=== PATIENT | female | born 1980 | race Caucasian/White ===

== ENCOUNTER → 2024-09-08 12:28 | Outpatient (REF) | payer OTHER, SELFPAY | LOC: WDC 12:28 | PROVIDERS: ATTENDING PHYSICIAN Physician Assistant | DX: Z12.31 Encounter for screening mammogram for malignant neoplasm of breast (principal) | CPT/HCPCS: 77063; 77067 ==

== ENCOUNTER 2024-09-16 15:59 | Day surgery (SDC) | payer OTHER, SELFPAY ==
[2024-09-16] VITALS (14 sets, daily range): BP systolic 112–151; BP diastolic 73–95; BMI 26.9
[2024-09-16 12:04] LABS: % Basophils 0.4 % (0-2); % Immature Granulocytes 0.4 % (0-0.5); % Lymphocytes 12.4 % (20.5-51.1); % Monocytes 10.5 % (1.7-9.3); % Neutrophils 76.3 % (42.2-75.2); Absolute Lymphocytes 1.3 10^3/uL (1.2-3.4); Absolute Monocytes 1.1 10^3/uL (0.1-0.6); Absolute Neutrophils 7.8 10^3/uL (1.4-6.5); Hematocrit 40.4 % (37.0-47.0); Hemoglobin 13.7 g/dL (12.0-16.0); Mean Corp Hgb Conc. 33.9 g/dL (33.0-37.0); Mean Corpuscular Hgb 29.1 pg (27.0-31.0); Mean Corpuscular Volume 85.8 fL (81.0-99.0); Mean Platelet Volume 9.8 fL (7.4-10.4); Nucleated Red Blood Cells % 0 %; Platelet Count 218 10^3/uL (130-400); Red Blood Cell Count 4.71 10^6/uL (4.20-5.40); Red Cell Dist. Width 12.5 % (11.5-14.5); White Blood Cell Count 10.2 10^3/uL (4.8-10.8)
[2024-09-16 12:15] LABS: HCG, Serum Qualitative Screen Negative
[2024-09-16 12:22] LABS: ALT (SGPT) 20 U/L (0-35); AST (SGOT) 20 U/L (14-36); Albumin 4.5 g/dl (3.5-5.0); Alkaline Phosphatase 60 U/L (38-126); Blood Urea Nitrogen 14 mg/dl (7-17); Calcium 9.3 mg/dl (8.4-10.2); Carbon Dioxide 28 mmol/L (22-30); Chloride 97 mmol/L (98-107); Glucose 104 mg/dl (70-99); Sodium 136 mmol/L (135-145); Total Bilirubin 0.7 mg/dl (0.2-1.3); Total Protein 7.5 g/dl (6.3-8.2); eGFR > 60.00
--- NOTE | 2024-09-16 13:28 | ED.GENMED ---
History of Present Illness
General
Chief Complaint: Abdominal Pain
Time Seen by Provider: 09/16/24 13:28
History of Present Illness
History of Present Illness:
TIME OF INITIAL ENCOUNTER: 1:30 PM
HPI: Patient presents with nausea, vomiting, and diarrhea that started 3 days ago. The NVD has improved but she has right-sided abdominal discomfort. This was associated with fever and she then developed right lower quadrant discomfort. She has
had some persistent loss of appetite. She has intermittent waves of nausea. She has an IUD. She has had some questionable chills.
EXAM:
GENERAL: Well appearing in no distress
HEENT: Moist oral mucosa
CARDIOVASCULAR: No murmurs, normal heart rate, regular rhythm, No chest wall tenderness
PULMONARY: No respiratory distress, breath sounds are clear and equal
ABDOMEN: Soft with no peritoneal signs, focal tenderness in the right lower quadrant tenderness is moderate
NEUROLOGIC: Excellent strength all extremities, no coordination deficits
PSYCHIATRIC: Appropriate mental status, normal insight and judgement
EXTREMITIES: Nontender, no edema, moves all extremities equally
SKIN: No rash, no lesions
NUMBER AND COMPLEXITY OF PROBLEMS ADDRESSED AT THE ENCOUNTER
� Chronic conditions affecting care: Depression, has had breast implants
� Acute Exacerbation and/or Progression of Chronic Illness:
� Differential Diagnosis includes: Mesenteric adenitis, epiploic appendagitis, viral syndrome, foodborne illness, appendicitis
AMOUNT AND/OR COMPLEXITY OF DATA TO BE REVIEWED AND ANALYZED
� I performed an independent evaluation of and my interpretation is:
EKG:
CT:
X-rays:
Laboratory Studies: White count is normal, hemoglobin normal, chemistries are unremarkable, bicarb is normal, potassium is normal, test negative
Other:
� Review of other/old records: The patient was seen here in 2020 related to chest pain.
� Clinical information was obtained by an independent historian: I spoke to at bedside
� Prescriptions/Medications Considered but not given:
� Further testing considered but not performed:
RISK OF COMPLICATIONS AND/OR MORBIDITY OR MORTALITY OF PATIENT MANAGEMENT
� Social determinants of health affecting care: Lives at home
� Discussion with other providers: 2:30 PM: Discussed case with Dr. Marcano
� Escalation of care including admission/observation vs risk of discharge considered: Labs are normal and she had nausea, vomiting, and diarrhea however she is focally tender in the right lower quadrant without having any ongoing
nausea, vomiting, diarrhea. Will obtain CT imaging.
ANY OTHER UPDATES:
CT shows evidence of appendicitis. I have ordered Unasyn and IV fluids.
Past History
Past History
ED Past Medical History: Asthma and Hypercholesterolemia; Negative HTN or NIDDM
ED Past Surgical History: None
Social History
Tobacco: Former smoker
Alcohol: Occasional
Personal:
Living: with family
Phy Exam
Physical Exam
Physical Exam:
See HPI
Course
Orders/Labs/Results
Orders:
Orders
09/16/24 Lunch
NPO
Allow oral meds: Yes
Allow clear liquids: No
09/16/24 11:45
Test Result ONCE
09/16/24 11:50
Complete Blood Count/With Diff Urgent
Comprehensive Metabolic Panel Urgent
HCG, Serum Qualitative Screen Urgent
09/16/24 13:34
CT Abd/pelvis W Iv Cont Urgent
Comment:
Reason For Exam: resolved NVD now w/ focal RLQ tender
09/16/24 14:24
Ampicillin/Sulbactam 3 G [Unasyn] 3 gm 0.9% Sodium Chloride 100 ml [Nss] 100 ml IV NOW
09/16/24 14:38
Acetaminophen [Tylenol] 650 mg PO Q4HPRN PRN
HYDROmorphone [Dilaudid] 0.5 mg IV Q4HPRN PRN
09/16/24 14:42
HYDROmorphone [Dilaudid] 0.25 mg IV PACU-Q5MPRN PRN
HYDROmorphone [Dilaudid] 0.5 mg IV PACU-Q5MPRN PRN
Ondansetron Injectable [Zofran] 4 mg IV PACU-ONCEPRN PRN
Prochlorperazine [Compazine] 5 mg IV PACU-ONCEPRN PRN
Notify MD As Directed
Notify physician if: for SDS patients with known or suspected sleep obstructive sleep apnea, monitor in the
PACU.
Notify MD for any apneic/desaturation episodes
O2 Therapy [RESP] Urgent
Titrate/Wean O2 to maintain O2 sat greater than (%): 92
Special Instructions: -Provide supplemental oxygen to achieve O2 sat of 92% or greater.
-After 15 min, may wean O2 and discontinue if patient is able to maintain O2 sat of 92%
or greater during recovery period.
If patient is a discharge home, without oxygen therapy, notify anestheiologist if
unable to maintain O2 SAT of 92% or greater on room air for MD clearance.
09/16/24 14:45
Normosol (Mult Electrolytes) [Normosol-R/Plasmalyte-A] 1,000 ml IV PER PROTOCOL
09/16/24 15:07
0.9% Sodium Chloride 1000 ml [Nss] 1,000 ml IV BOLUS
09/16/24 15:19
Piperacillin/Tazo 3.375 Gram [Zosyn] 3.375 gram in 50 ml .ROUTE .STK-MED
09/16/24 16:00
Piperacillin/Tazo 3.375 Gram [Zosyn] 3.375 gram in 50 ml IV Q6H
Abnormal Lab Results
09/16/24
11:50
Absolute Neuts (auto) 7.8 H 10^3/uL
(1.4-6.5)
Absolute Monos (auto) 1.1 H 10^3/uL
(0.1-0.6)
Neutrophils % 76.3 H %
(42.2-75.2)
Lymphocytes % 12.4 L %
(20.5-51.1)
Monocytes % 10.5 H %
(1.7-9.3)
Chloride 97 L mmol/L
(98-107)
Glucose 104 H mg/dl
(70-99)
09/16/24 11:50
09/16/24 11:50
Vital Signs
Initial and Last Documented VS:
Initial Vital Signs
Temp Pulse Resp BP Pulse Ox
36.6 C 97 16 134/74 98
09/16/24 11:43 09/16/24 11:43 09/16/24 11:43 09/16/24 11:43 09/16/24 11:43
Last Documented Vital Signs
Temp Pulse Resp BP Pulse Ox
36.6 C 97 16 134/74 98
09/16/24 11:43 09/16/24 11:43 09/16/24 11:43 09/16/24 11:43 09/16/24 11:43
*Critical Care Note
Total Time (30-74mins, 75-104mins- exclusive of procedures): Not Applicable
ED Attending Note
-
Portions of this chart may have been created with voice recognition software.� Occasional wrong word or��sound alike� substitutions may have occurred due to the inherent limitations of voice recognition software.
Discharge Plan
Departure
Patient Disposition: Admit
Date of Disposition: 09/16/24
Time of Disposition: 14:30
Presentation/result/management discussed w/ accepting MD/DO: dr marcano
Patient with high blood pressure during this ER visit?: Yes
Discharge Problem:
Acute appendicitis
Prescriptions:
No Action
cetirizine [Zyrtec] 10 mg Tablet
10 mg PO DAILY
acetaminophen [Tylenol Extra Strength] 500 mg Tablet
1,000 mg PO Q6HPRN PRN (Reason: mild pain)
Referrals:
UNKNOWN - PT NOT,INTERVIEWE [Unknown Provider] -
Interventions
Interventions:
*Risk Screen - Suicide Last Done: 09/16/24 11:43
*General Assessment Last Done: 09/16/24 14:23
*Neglect/Abuse Screening Last Done: 09/16/24 14:23
ED- Fall Risk Assessment Last Done: 09/16/24 14:23
*ED COVID-19 Vaccine History Last Done: 09/16/24 14:23
DL-Kpcejw-Qlxtrhddtd Assessment Last Done: 09/16/24 14:23
Discharge Date and Time
Print Language: MOHAWK
[2024-09-16] MEDS: NSS 1000 IV (15:21)
--- NOTE | 2024-09-16 15:57 | W.SUR.PREOP ---
Pre-Operative Surgical Note
-
I have examined this patient prior to the performance of the scheduled procedure.
The patient's condition is unchanged from the time of the current History and
Physical and the patient is able to undergo the scheduled procedure.
--- NOTE | 2024-09-16 15:57 | HPS.HSE ---
Family Physician
-
Family Physician: Mary Tamayo
Chief Complaint
-
Abdominal pain
History of Present Illness
Patient is a 44 yo F with no pertinent PMH who presents with approximately 3 to 4 days of worsening RLQ abdominal pain. Ms. Valdez states that her symptoms began acutely on Sunday. She had associated diarrhea as well as nausea and vomiting and
associated her symptoms to a GI illness. Her GI symptoms subsided, however, her abdominal pain persisted and localized to the RLQ. No clear fevers or chills. No bloody or mucousy stools. No chronic GI issues. No personal or family history of
IBD or colon cancer.
Medical History
Past Medical History
Past Medical History: Reports None
Past Surgical History: Reports None
Social History
Tobacco: Non-smoker
Alcohol: None
Drug: None
Family History
Family History: Not pertinent
Allergies / Home Medications
Allergies reflects when Allergies were last updated in [employer].
Home Medications with original date entered in [employer]
Allergy/Medication List:
Sulfa
Review of Systems
-
A 12 point ROS was completed and negative except as noted: Yes
Physical Exam
Vital Signs
Vital Signs
Temp Pulse Resp BP Pulse Ox
98.7 F 79 16 112/81 100
09/16/24 15:26 09/16/24 15:26 09/16/24 15:26 09/16/24 15:26 09/16/24 15:26
Physical Exam
General: Well Developed, Well Nourished and No Apparent Distress
Respiratory: Non Labored Respirations
Cardiac: Regular Rhythm
GI: Soft, Non Distended, Tender (RLQ) and Other (No diffuse peritonitis)
Musculoskeletal: No Edema
Skin: Warm and Dry
Neuro: Nonfocal/grossly intact
Laboratory Results
-
09/16/24 11:50
09/16/24 11:50
Laboratory Results
Total Bilirubin 0.7 mg/dl (0.2-1.3) 09/16/24 11:50
AST 20 U/L (14-36) 09/16/24 11:50
ALT 20 U/L (0-35) 09/16/24 11:50
Alkaline Phosphatase 60 U/L (38-126) 09/16/24 11:50
Data Reviewed
-
CT Scan: Image Personally Visualized and interpreted and Report Reviewed by me
Lab Data: Labs Reviewed by me
Impression/Plan
-
IMPRESSION:
Patient is a 44 yo F p/w acute appendicitis
Natural history and pathophysiology of appendicitis was reviewed. CT scan imaging was reviewed. Options for management including medical management with antibiotics versus surgical management with appendectomy were considered and discussed. Pros
and cons of both approaches was discussed. Specifically, we discussed failure of medical management and future episodes of appendicitis versus surgical risks. Patient would like to proceed with appendectomy.
Plan for a laparoscopic appendectomy. The procedure itself, as well as the risks, benefits, and alternatives was discussed. Specifically, we discussed the risk of bleeding, infection, injury to surrounding structures (bowel, bladder), staple line
leak, need for open procedure. Typical postprocedure recovery was discussed. All questions answered. Consent signed.
PLAN:
-- Laparoscopic appendectomy
-- NPO, IVF
-- Antibiotics: Zosyn
-- Admit post-op
[2024-09-16] MEDS: ZOSYN IV (16:07)
--- NOTE | 2024-09-16 17:36 | W.IMMPOSTOP ---
Surgical Immed Post Op Note
-
Primary Surgeon: Krys
Assisting Surgeon: None
Pre-op Diagnosis: Acute appendicitis
Post-op Diagnosis: Acute appendicitis
Procedure Performed: Laparoscopic appendectomy
Anesthesia Type: General
Specimen / Cultures:
1. Appendix
Estimated Blood Loss: 11 cc
Complications: None
Operative Findings:
1. Severe acute inflammation with gangrenous appendix, no perforation
2. Mesentery taken with [employer], base with ibarra load stapler
[2024-09-16] MEDS: DILAUDID 0.25 MG IV ×2 (17:57→18:15)
[2024-09-16] MEDS: ZOFRAN 4 MG IV ×2 (18:30→23:34)
[2024-09-16] MEDS: NORMOSOL-R/PLASMALYTE-A 1000 IV (18:33)
[2024-09-16] MEDS: COMPAZINE 5 MG IV (19:03)
--- NOTE | 2024-09-16 19:45 | PTCARENOTE ---
Pt arrived from PACU in bed. aaox3, cooperative, drowsy. Pt states her pain is 'OK'. Denies nausea at this time. IVF infusing. vss. oriented to room. call robles within reach. abdominal stab sites with surgical glue, c/d/i.
[2024-09-16] MEDS: ZOSYN 50 IV (21:41)
[2024-09-16] MEDS: TYLENOL 650 MG PO (21:43)
[2024-09-17 00:17] VITALS: BP 134/80
--- NOTE | 2024-09-17 02:17 | DOWNTIME ---
There was a [employer] Downtime on 09/17/2024 from 0100 to 09/17/2023 at 0205 . Downtime documentation of patient's care, including medication administrations, has been reconciled in the electronic record per guidelines. Refer to the
patient's paper chart under the miscellaneous tab to see printed paper medication records and downtime forms.
[2024-09-17 03:27] VITALS: BP 137/83
[2024-09-17] MEDS: ZOSYN 50 IV ×2 (05:38→09:11)
[2024-09-17 07:23] VITALS: BP 121/74
--- NOTE | 2024-09-17 09:55 | CM ---
Reviewed the chart notes and spoke with the patient and her spouse at the bedside. The patient resides with her spouse in a three story home with two steps to enter. The patient reports no DME/VN/SNF. The patient confirmed her pharmacy of choice
is [facility] and PCP is Mary Tamayo. Patient spouse will provide transportation home today. CM continues to be available to patient/family and is monitoring medical plan for needs at discharge.
Plan: Discharge to home today. No needs. Spouse to provide transportation.
--- NOTE | 2024-09-17 10:49 | W.PN.GS2 ---
Today's Communication / Plan
-
DC
Assessment / Plan
-
44F POD1 s/p lap appy for acute appendicitis
Low grade temp x1 noted, no upward trend
clinically well
meets criteria for dc
Plan for DC home with 4 days PO abx
Subjective Data
-
Date of Service: September 17, 2024
Low grade temp x1 overnight, feels better this am. ambulating, voiding, rocio cld
Objective Data
-
Intake and Output
09/16/24 09/17/24 09/18/24
06:59 06:59 06:59
Intake Total 680 / 680
Balance 680 / 680
Intake:
Oral fluids 480 / 480
IV fluids (Total) 200 / 200
Normosal 200 / 200
Other:
Number of approximated MODERATE 2
amounts of urine
Vital Signs
Temp Pulse Resp BP Pulse Ox
98.3 F 97 16 121/74 96
09/17/24 07:23 09/17/24 07:23 09/17/24 07:23 09/17/24 07:23 09/17/24 07:23
Lab Results
09/16/24 11:50
09/16/24 11:50
Calcium 9.3 mg/dl (8.4-10.2) 09/16/24 11:50
Total Bilirubin 0.7 mg/dl (0.2-1.3) 09/16/24 11:50
AST 20 U/L (14-36) 09/16/24 11:50
ALT 20 U/L (0-35) 09/16/24 11:50
Alkaline Phosphatase 60 U/L (38-126) 09/16/24 11:50
Total Protein 7.5 g/dl (6.3-8.2) 09/16/24 11:50
Albumin 4.5 g/dl (3.5-5.0) 09/16/24 11:50
Physical Exam
-
Gen: NAD
Abd: soft, approp ttp, incisions cdi with glue
Patient has a herrera catheter: No
Patient has a central line: No
--- NOTE | 2024-09-17 10:51 | W.DS.TRANS ---
DC Summary - Info Specialist
-
Discharge Instructions:
Discharge Diagnosis/Procedures Acute appendicitis s/p laparoscopic appendectomy
Diet Regular
Activity No strenuous activity
Additional Activity No heavy lifting (>20 lbs) or strenuous
activities for 2 weeks postoperatively
Driving Restrictions No driving if too sore or taking narcotics
Bathing Restrictions OK to Shower
Wound Care Keep incisions clean and dry. Glue will flake
off in 2 to 3 weeks. Stitches will dissolve.
Use ice to the abdomen to reduce any bruising or
swelling.
Instructions:
Stand-Alone Forms:
Changes to Home Medications: No
Discharge Medications:
DC Medications w/original date entered in [employer]
acetaminophen 500 mg tablet (Tylenol Extra Strength) 1,000 mg PO Q6HPRN PRN mild pain 09/16/24
cetirizine 10 mg tablet (Zyrtec) 10 mg PO DAILY 09/16/24
ibuprofen 200 mg tablet 400 - 600 mg (2 - 3 x 200 mg) PO Q6HPRN PRN moderate pain #1 tab 09/16/24
oxycodone 5 mg tablet 5 mg PO Q4HPRN PRN breakthrough/severe pain #10 tabs 09/16/24
amoxicillin 875 mg-potassium clavulanate 125 mg tablet 1 tab PO Q12 antibiotic 4 days #8 tabs 09/17/24
Home Medication Changes
Pending Results: No
== END 2024-09-17 10:57 | disposition home or self-care (01) ==
LOC: SDS 15:59
PROVIDERS: Emergency Medicine; ATTENDING PHYSICIAN Surgery; EMERGENCY PHYSICIAN Emergency Medicine; FAMILY PHYSICIAN Physician Assistant
DX: K35.891 Other acute appendicitis without perforation, with gangrene (principal); R10.9 Unspecified abdominal pain; K35.80 Unspecified acute appendicitis
CPT/HCPCS: 44970; 88304; 74177; 80053; 84703; 85025; 99285; C1776; Q9967